=== PATIENT | female | born 1995 | race Caucasian/White ===

== ENCOUNTER → 2021-10-29 | Outpatient (CLI) | payer BC, OTHER ==
[~2021-10-29] MED LIST: COLACE 100MG C100 MG PO; CYCLOBENZAPRINE10 MG PO; FLORINEF 0.1 M0.1 MG PO; IBUPROFEN600 MG PO
[2021-10-29 10:56] LABS: HEMOGLOBIN 14.7 gm/dl (12.3-15.3); RED BLOOD COUNT 4.96 M/UL (4.00-5.10)
[2021-10-29 11:24] LABS: BUN/CREATININE RATIO 11 (0-10)
[2021-10-30 14:13] LABS: EBV AB VCA, IGG <18.0 U/mL (0.0-17.9); EBV AB VCA, IGM <36.0 U/mL (0.0-35.9); EBV NUCLEAR ANTIGEN AB, IGG <18.0 U/mL (0.0-17.9)
== END ==
LOC: LAB 10:35
PROVIDERS: Nurse Practitioner
DX: R59.0 Localized enlarged lymph nodes (principal); R50.9 Fever, unspecified; M79.10 Myalgia, unspecified site
CPT/HCPCS: 36415; 80053; 85025

== ENCOUNTER → 2021-12-23 | Outpatient (CLI) | payer BC, OTHER ==
[2021-12-23 08:29] LABS: RED BLOOD COUNT 4.74 M/UL (4.00-5.10); WHITE BLOOD COUNT 5.4 K/UL (4.5-11.0)
[2021-12-23 08:50] LABS: BUN/CREATININE RATIO 13 (0-10)
== END ==
LOC: LAB 08:09
PROVIDERS: Physician Assistant
DX: R10.13 Epigastric pain (principal)
CPT/HCPCS: 36415; 80053; 82150; 83690; 85025

== ENCOUNTER → 2022-01-15 | Outpatient (CLI) | payer BC, OTHER | LOC: US 07:44 | DX: R10.11 Right upper quadrant pain (principal) | CPT/HCPCS: 76705 ==